=== PATIENT | male | born 1995 | race Caucasian/White ===

== ENCOUNTER 2017-08-19 18:47 | Emergency (ER) | payer BC, SELFPAY ==
[2017-08-19 18:50] VITALS: BP 143/64; PULSE 92; RESP 16; TEMP 36.7; BMI 26.1
[2017-08-19] MEDS: Lidocaine/Epi/Tetracaine 50 ML 1 APPLIC TOPICAL (20:32)
--- NOTE | 2017-08-19 21:22 | ED.DCSUM_ITS ---
- ER Visit Summary Date of Service: 08/19/17 Chief Complaint: Left knee laceration History of Present Illness: The patient is a 22 M since to the emergency department laceration to the left knee. Patient was playing soccer at the [employer]. He was kicked on the anterior knee by someone else. He had immediate bleeding. His tetanus is up-to-date. He has been able to bear weight. He denies other injury. Patient takes no daily medications. He is otherwise healthy. Physical Examination: Name is relatively unremarkable. Patient has laceration of the anterior right knee below the patella. Extension is preserved. The laceration is approximately 4 cm in a V-shaped. There is minimal active bleeding. There is no pain to palpation along the knee. There is no gross laxity of the knee. Test Results: [] Emergency Department Course and Treatment: Let was applied topically. The wound was anesthetized with lidocaine locally. It was irrigated with 250 cc of normal saline. 2 buried gut sutures were used to loosely approximate the skin. The dermis was closed with 12 4-0 simple interrupted suture. Bacitracin dressing was applied. The patient was placed on Keflex as this was a dirty wound even though was aggressively irrigated. He is counseled on wound care. He will follow-up in 10 days for suture removal return with any worsening symptoms. He is comfortable with this plan of care. Treatment Plan: [] Disposition: Discharge Impression:. 4 cm knee laceration with repair This note was generated with [employer] dictation software. It may contain incorrect words, spelling, and punctuation that were not noted in review of the chart prior to signing ED Disposition - Plan for ED Patient: Chief Complaint: Laceration Instructions: ED Laceration All Prescriptions: Cephalexin [Keflex] 500 mg PO Q6 #40 cap Referrals: Dmitry Dhillon MD [Primary Care Provider] - 10 Day for suture removal
[2017-08-19] MEDS: Cephalexin 250 MG Capsule 500 MG PO (21:56)
[2017-08-19 22:02] VITALS: PULSE 64; RESP 16
== END 2017-08-19 22:03 | disposition home or self-care (01) ==
PROVIDERS: Emergency Provider Emergency Medicine; Family Provider Pediatrics; PCP Pediatrics
DX: S81.012A Laceration without foreign body, left knee, initial encounter (principal); W50.1XXA Accidental kick by another person, initial encounter; Y93.66 Activity, soccer; Y92.214 College as the place of occurrence of the external cause; Y99.8 Other external cause status
CPT/HCPCS: 12002; 99284